=== PATIENT | female | born 1960 | race Hispanic/Latino ===

== ENCOUNTER 2025-02-16 14:33 | Emergency (ER) | payer MEDICAID ==
[~2025-02-16] VITALS: Ht 160 cm; Wt 63.5 kg
--- NOTE | 2025-02-16 14:42 | ERN ---
ED Note History of Present Illness Stated Complaint: LEG PAIN Chief Complaint: Lower Extremity Pain/Injury Time Seen by MD: 14:35 Dictation: IS A 64-YEAR-OLD MALE COMING IN TODAY WITH A AN ACUTE ONSET OF RIGHT LATERAL HIP AND RIGHT KNEE PAIN WHEN HE WENT TO SIT DOWN ON THE COMMODE LAST NIGHT. HE STATES HE HAD HAD NO PAIN SINCE THEN. HE HAS NO HISTORY OF HIP REPLACEMENT/SURGERIES/INJURIES ARTHRITIS. Allergies: Coded Allergies: No Known Drug Allergies (Unverified Allergy, Unknown, 02/16/25) Past Medical History Past Medical History: Hypertension Surgical History: LAVA Surgical History Other: KIDNEY TRANSPLANT History: Not Applicable RN Note Reviewed/Agreed w/PFSH: Yes Review of System Dictation CONSTITUTIONAL: NEGATIVE EXCEPT FOR HPI HEAD/FACE: NEGATIVE EXCEPT FOR HPI EENT: NEGATIVE EXCEPT FOR HPI RESPIRATORY: NEGATIVE EXCEPT FOR HPI GASTROINTESTINAL/ABDOMINAL: NEGATIVE EXCEPT FOR HPI GENITOURINARY: NEGATIVE EXCEPT FOR HPI MUSCULOSKELETAL: NEGATIVE EXCEPT FOR HPI RIGHT HIP AND KNEE PAIN INTEGUMENTARY: NEGATIVE EXCEPT FOR HPI NEUROLOGICAL/PSYCH: NEGATIVE EXCEPT FOR HPI HEMATOLOGIC/LYMPHATIC: NEGATIVE EXCEPT FOR HPI ALL SYSTEMS NEGATIVE, EXCEPT NOTED ABOVE. 13 POINT REVIEW OF SYSTEMS ASSESSED AND ALL NEGATIVE EXCEPT FOR ABOVE. Initial Vital Sign VS Vital Signs Date Time Temp Pulse Resp B/P (MAP) Pulse Ox O2 Delivery O2 Flow Rate FiO2 02/16/25 14:34 98.2 67 20 110/53 99 Room Air 02/16/25 14:44 0 21 Physical Exam Dictation VITAL SIGNS REVIEWED GENERAL APPEARANCE: ALERT, ORIENTED X 3, MODERATE ACUTE DISTRESS, WELL DEVELOPED, NOURISHED. HEAD AND FACE: NON-TRAUMATIC. EYES: PERRL, PINK CONJUNCTIVAS, EYELID NO TRAUMA, ANTERIOR CHAMBER WITH ARCUS SENILIS. EARS: PINNAS INTACT AND NO SIGNS OF TRAUMA OR ERYTHEMA EAR CANALS CLEAR AND NO DISCHARGE TM NO ERYTHEMA NOSE: NO DISCHARGE, NO BLEEDING. OROPHARYNX: MOUTH NORMAL, TONGUE PINK, PHARYNX CLEAR,NO ERYTHEMA, TONSILS NO EXUDATES, NO ABSCESSES NOTED, MUCOUS MEMBRANE MOIST NECK: SUPPLE, NON-TENDER, NO THYROMEGALY, NO MASSES, NO JVD, NO BRUITS BREAST:DEFERRED CHEST:NO TENDERNESS, NO CREPITUS, NO PARADOXICAL MOVEMENT, NO RETRACTIONS LUNGS:CLEAR, WELL-VENTILATED, SYMMETRIC, NO RALES, NO WHEEZING, NO RHONCHI, NO STRIDOR, GOOD BREATH SOUNDS BILATERALLY HEART: REGULAR RATE, REGULAR RHYTHM, NO MURMUR, NO GALLOPS VASCULAR: NO PERIPHERAL EDEMA, ABDOMEN: SOFT, POSITIVE BOWEL SOUNDS, NONDISTENDED, NO GUARDING, NONTENDER, NO REBOUND, NO MASSES NO HEPATOMEGALY, NO SPLENOMEGALY, NO NIEVES'S SIGN, NO HERNIAS. RECTAL: DEFERRED GENITAL: DEFERRED NEUROLOGICAL: NORMAL SPEECH, MOTOR FUNCTION INTACT, SENSORY FUNCTION INTACT MUSCULOSKELETAL: NECK NONTENDER, FULL RANGE OF MOTION, BACK NONTENDER, FULL RANGE OF MOTION, EXTREMITIES: DIFFUSE RIGHT LATERAL HIP AND RIGHT KNEE PAIN. NO SWELLING OR TENDERNESS. NO ERYTHEMA SKIN: COLOR PINK, DRY, NO TURGOR, NO RASH, NO LACERATIONS, NO ABRASIONS, NO CONTUSIONS. LYMPHATIC: DEFERRED Results (Laboratory/Radiology) Laboratory/Radiology 1605/RIGHT HIP X-RAY NEGATIVE EXCEPT FOR DEGENERATIVE CHANGES RIGHT KNEE X-RAY NEGATIVE Labs Reviewed?: Yes ED Course ED Course Orders Procedure Category Date Status Time Knee 3vws Rt RAD 02/16/25 Taken 14:39 Hip Unilat 2-3vw Right RAD 02/16/25 Taken 14:39 Acetaminophen With PHA 02/16/25 In Process Codeine (Tylenol-Code 15:00 Current Medications Medications (Trade) Dose Ordered Sig/Rupert Route PRN Reason Start Time Stop Time Status Last Admin Dose Admin Acetaminophen/ Codeine Phosphate (TYLenol-coDEINE TAB) 2 tab ONCE PO 02/16/25 15:00 02/16/25 19:00 02/16/25 14:49 Vital Signs Date Time Temp Pulse Resp B/P (MAP) Pulse Ox O2 Delivery O2 Flow Rate FiO2 02/16/25 14:44 98.8 65 18 118/66 99 Room Air* 0 21 02/16/25 14:34 98.2 67 20 110/53 99 Room Air 1607/PATIENT IS STILL HAVING PAIN WAS A MADE AWARE THAT THERE WAS NO ACUTE FINDINGS OTHER THAN DEGENERATIVE CHANGES ON THE X-RAYS. HE WILL BE GIVEN MORPHINE TO GO HOME AND WE WILL BE SENT HOME WITH TYLENOL WITH CODEINE TO SEE HIS PRIMARY CARE DOCTOR TOMORROW. Medical Decision Making MDM MEDICAL DECISION-MAKING BASED ON EMPIRIC TREATMENT FOR HIP AND KNEE PAIN WITHOUT TRAUMA X-RAY SHOWED DEGENERATIVE CHANGES ONLY TO BOTH SITES PATIENT WILL BE DISCHARGED HOME WITH ADDITIONAL PAIN MANAGEMENT GIVEN TYLENOL WITH CODEINE FOR SEVERE PAIN AT HOME AND TOLD TO SEE HIS DOCTOR TOMORROW DX & DISP Disposition: Discharge Departure Impression: Primary Impression: Strain of right hip Additional Impression: Strain of right knee Condition: Stable Scripts Acetaminophen with Codeine (Acetaminophen-Cod #3 Tablet) 300 Mg-30 Mg Tablet 1 TAB PO Q6H PRN for MODERATE TO SEVERE PAIN, #10 TAB 0 Refills Prov: NED HERNANDEZ 02/16/25 Additional Instructions: Follow-up with primary care provider in 1 to 2 days. Take medications as directed here in the emergency room. Okay to continue home medications unless otherwise discussed during your visit in the emergency room today. Return to your nearest emergency room if symptoms worsen or if there is no improvement. Call 911 if you need immediate assistance. Take Tylenol or Motrin [id number] as needed and if no contraindications are present. Increase oral hydration. A wound culture or urine culture was ordered here in the emergency room department please follow-up with primary care provider and advise them to get repeat ports from our facility. If you had any Stephen wrap/splints that were applied here, please do not remove them until you see your primary care or specialty. Diet and activity as tolerated. Take Tylenol with codeine for severe pain. Warm compresses to pain three to 4 times a day and see your primary care doctor for follow up and management Referrals: SELF,REFERRAL (PCP) Time of Disposition: 16:09 I have reviewed the case, and I agree with, Diagnosis and Plan NED HERNANDEZ Feb 16, 2025 14:41
[2025-02-16 14:44] VITALS: BP 118/66; PULSE 65; RESP 18; TEMP 98.8; O2SAT 99
[2025-02-16] MEDS ORDERED: ACET-2079 PO (16:10)
--- NOTE | 2025-02-16 16:23 | HMCIMG ---
EXAM: CR right Knee, 3 View. CLINICAL HISTORY: NON TRAUMA RIGHT KNEE PAIN ONSET YESTERDAY COMPARISON: None provided. FINDINGS: BONES: No acute fracture or aggressive appearing osseous lesion. JOINTS: The joint spaces show no significant degenerative disease. There is no joint effusion appreciated. SOFT TISSUES: The soft tissues are unremarkable. IMPRESSION: No acute osseous pathology evident. /[place]
--- NOTE | 2025-02-16 16:24 | HMCIMG ---
EXAM: CR right Hip, 3 View. CLINICAL HISTORY: NON TRAUMA RIGHT LATERAL HIP PAIN ONSET YESTERDAY COMPARISON: None provided. FINDINGS: BONES: No acute fracture or aggressive appearing osseous lesion. JOINTS: No dislocation. The joint spaces are normal. SOFT TISSUES: The soft tissues are unremarkable. IMPRESSION: No acute osseous abnormality. /[place]
--- NOTE | 2025-02-18 11:54 | NUR ---
ENTERED PT CHART SO THAT [facility] COULD VIEW THIS VISIT FILMS.
== END 2025-02-16 16:29 | disposition home or self-care (01) ==
LOC: EDH 14:33
DX: S76.011A Strain of muscle, fascia and tendon of right hip, initial encounter (principal); S86.911A Strain of unspecified muscle(s) and tendon(s) at lower leg level, right leg, initial encounter; I10 Essential (primary) hypertension; Z94.0 Kidney transplant status; X50.1XXA Overexertion from prolonged static or awkward postures, initial encounter; Y93.89 Activity, other specified; Y92.89 Other specified places as the place of occurrence of the external cause; Y99.8 Other external cause status
CPT/HCPCS: 99284; 73502; 73562; 96372; J2270